=== PATIENT | female | born 1970 ===

== ENCOUNTER 2016-12-18 17:17 | Emergency (ER) | payer OTHER, SELFPAY ==
[2016-12-18 17:44] VITALS: BP 108/74; PULSE 85; RESP 18; TEMP 97.7; O2SAT 97
--- NOTE | 2016-12-18 18:14 | C.PDOC ---
History Of Present Illness 46 yr old female with PMhx of asthma, presents to the ER with complaints of cough for the past 1 month. Patient states she ran out of her asthma medicine. Denies fever, chills, chest pain, SOB, nausea, vomiting, abdominal pain or headache. Time Seen by Provider: 12/18/16 17:37 Chief Complaint (Nursing): Cough, Cold, Congestion History Per: Patient History/Exam Limitations: no limitations Onset/Duration Of Symptoms: Days (1 month) Past Medical History Reviewed: Historical Data, Nursing Documentation, Vital Signs Vital Signs: Last Vital Signs Temp 97.7 F 12/18/16 17:41 Pulse 85 12/18/16 17:41 Resp 18 12/18/16 17:41 BP 108/74 12/18/16 17:41 Pulse Ox 97 12/18/16 18:43 - Medical History PMH: Asthma Family History: States: No Known Family Hx - Social History Hx Tobacco Use: No Hx Alcohol Use: No Hx Substance Use: No - Immunization History Hx Tetanus Toxoid Vaccination: No Hx Influenza Vaccination: No Hx Pneumococcal Vaccination: No Review Of Systems Except As Marked, All Systems Reviewed And Found Negative. Constitutional: Negative for: Fever, Chills Cardiovascular: Negative for: Chest Pain Respiratory: Positive for: Cough. Negative for: Shortness of Breath Gastrointestinal: Negative for: Nausea, Vomiting, Abdominal Pain Neurological: Negative for: Headache Physical Exam - Physical Exam Appears: Well, Non-toxic, No Acute Distress Skin: Warm, Dry, No Rash Head: Atraumatic, Normacephalic Eye(s): bilateral: PERRL, EOMI Ear(s): Bilateral: Normal (no erythema) Nose: Normal Oral Mucosa: Moist Throat: Normal, No Erythema, No Exudate, No Drooling Neck: Normal, Normal ROM, Supple Chest: Symmetrical, No Tenderness Cardiovascular: Rhythm Regular, No Murmur Respiratory: Normal Breath Sounds, No Rales, No Rhonchi, No Stridor, No Wheezing Extremity: Normal ROM, No Tenderness, No Deformity, No Swelling Neurological/Psych: Oriented x3, Normal Speech, Normal Motor Gait: Steady ED Course And Treatment O2 Sat by Pulse Oximetry: 97 Pulse Ox Interpretation: Normal Medical Decision Making Medical Decision Making: PLAN: * Zithromycin PO PROGRESS: On re-examination, patient is resting comfortably in no acute distress. Clinical signs and symptoms are not suggestive pneumonia. Patient given follow up instructions. Instructed to return to ER if symptoms worsen or new symptoms arise. Disposition Counseled Patient/Family Regarding: Diagnosis, Need For Followup, Rx Given - Disposition Disposition: HOME/ ROUTINE Disposition Time: 18:12 Condition: STABLE Additional Instructions: Vaya a gates mdico o la clnica en 2-5 matos sin falta, para mas evaluacin. [place] los medicamentos mike indicado. Volver a la alexsander de emergencia en cualquier momento si los sntomas persisten o empeoran. Prescriptions: Albuterol HFA [Ventolin HFA 90 mcg/actuation (8 g)] 1 puff IH Q4 #1 puff Azithromycin 1 tab PO DAILY #4 tab Montelukast [Singulair] 10 mg PO DAILY #20 tab Instructions: Upper Respiratory Infection (ED) Print Language: SAMI - POA Present On Arrival: None - Clinical Impression Clinical Impression: Upper respiratory infection, Medication refill - PA / ACCOUNTS PAYABLE REPRESENTATIVE / Resident Statement MD/DO has reviewed & agrees with the documentation as recorded. - Scribe Statement The provider has reviewed the documentation as recorded by the Scribe Tequila Max All medical record entries made by the Scribe were at my direction and personally dictated by me. I have reviewed the chart and agree that the record accurately reflects my personal performance of the history, physical exam, medical decision making, and the department course for this patient. I have also personally directed, reviewed, and agree with the discharge instructions and disposition.
== END 2016-12-18 18:46 | disposition home or self-care (01) ==
LOC: C.ER 17:17
DX: Z76.0 Encounter for issue of repeat prescription (principal); J06.9 Acute upper respiratory infection, unspecified

== ENCOUNTER 2018-06-13 11:08 | Emergency (ER) | payer OTHER ==
[2018-06-13 11:10] VITALS: BMI 30.7
[2018-06-13 11:24] VITALS: O2SAT 98
--- NOTE | 2018-06-13 11:48 | C.PDOC ---
History Of Present Illness 48 y/o female presents to the ER for evaluation after she thinks she swallowed a bone on Thanksgiving 1 week ago. Patient states that she ate piece of turkey and there might be a bone stuck. Patient reports that she has a strange sensation in her esophagus, she thinks that " something " might be in the esophagus. She notes that she is able to eat and swallow liquids and foods. Denies having fever, chills, nausea, vomiting, and abdominal pain. Time Seen by Provider: 06/13/18 11:40 Chief Complaint (Nursing): ENT Problem History Per: Patient History/Exam Limitations: no limitations Onset/Duration Of Symptoms: Days Current Symptoms Are (Timing): Still Present Severity: Moderate Past Medical History Reviewed: Historical Data, Nursing Documentation, Vital Signs Vital Signs: Last Vital Signs Temp 97.5 F L 06/13/18 11:18 Pulse 61 06/13/18 11:18 Resp 18 06/13/18 11:18 BP 122/78 06/13/18 11:18 Pulse Ox 98 06/13/18 11:18 - Medical History PMH: Asthma Other Surgeries: Hx of surgeries Family History: States: No Known Family Hx - Social History Hx Tobacco Use: No Hx Alcohol Use: No Hx Substance Use: No - Immunization History Hx Tetanus Toxoid Vaccination: No Hx Influenza Vaccination: No Hx Pneumococcal Vaccination: No Review Of Systems Except As Marked, All Systems Reviewed And Found Negative. Constitutional: Negative for: Fever, Chills ENT: Positive for: Other (abnormal sensation in throat) Gastrointestinal: Negative for: Nausea, Vomiting, Abdominal Pain Physical Exam - Physical Exam Appears: Non-toxic, No Acute Distress Skin: Normal Color, Warm, Dry Head: Atraumatic, Normacephalic Eye(s): bilateral: Normal Inspection Nose: Normal Oral Mucosa: Moist Throat: Normal, No Erythema, No Exudate, No Mass Neck: Supple Chest: Symmetrical Cardiovascular: Rhythm Regular, No Murmur Respiratory: Normal Breath Sounds, No Rales, No Rhonchi, No Wheezing Gastrointestinal/Abdominal: Normal Exam, Soft, No Tenderness, No Guarding, No Rebound Extremity: Bilateral: Atraumatic, Normal ROM Neurological/Psych: Oriented x3, Normal Speech ED Course And Treatment O2 Sat by Pulse Oximetry: 98 (RA) Pulse Ox Interpretation: Normal Medical Decision Making Medical Decision Making: Impression: Foreign Body Sensation in Throat Plan: * [id number]-Soft Tissue Neck xray shows no foreign body. Patient remained well in no distress. she is speaking clear sentences and able to swallow liquids and tolerate. Advise patient to follow up with GI. Disposition Counseled Patient/Family Regarding: Diagnosis, Need For Followup - Disposition Referrals: Marino Maynard MD [Staff Provider] - Disposition: HOME/ ROUTINE Disposition Time: 12:48 Condition: GOOD Additional Instructions: Radiografa normal Eduard un seguimiento con un especialista en GI para peyton evaluacin adicional y peyton posible endoscopia bro medicamentos dos veces al caleb Prescriptions: Ranitidine HCl 150 mg PO BID #30 tablet Instructions: Dysphagia Print Language: BENGALI - POA Present On Arrival: None - Clinical Impression Clinical Impression: Sensation of foreign body in esophagus - PA / [employer] / Resident Statement MD/DO has reviewed & agrees with the documentation as recorded. - Scribe Statement The provider has reviewed the documentation as recorded by the Stuart Kemp Provider Attestation All medical record entries made by the Scribe were at my direction and personally dictated by me. I have reviewed the chart and agree that the record accurately reflects my personal performance of the history, physical exam, medical decision making, and the department course for this patient. I have also personally directed, reviewed, and agree with the discharge instructions and disposition.
[2018-06-13 13:02] VITALS: BP 114/73; PULSE 70; RESP 20; TEMP 98.2
--- NOTE | 2018-06-13 16:24 | RAD ---
Date of service: 06/13/2018 HISTORY: possible poultry bone swallowed COMPARISON: None TECHNIQUE: Two views FINDINGS: No radiopaque foreign body appreciated. No osseous or soft tissue pathology appreciated. Airway appears unremarkable. IMPRESSION: No radiopaque foreign body appreciated.
== END 2018-06-13 13:02 | disposition home or self-care (01) ==
LOC: C.ER 11:08
DX: R19.8 Other specified symptoms and signs involving the digestive system and abdomen (principal)

== ENCOUNTER 2018-11-20 02:44 | Emergency (ER) | payer OTHER ==
[2018-10-22 14:27] VITALS: BMI 30.7
[2018-11-20 06:14] VITALS: BP 112/73; PULSE 63; RESP 16; TEMP 97.6; O2SAT 100
[2018-11-20 09:51] LABS: URINE BILIRUBIN NEGATIVE (NEGATIVE); URINE BLOOD 3+ (NEGATIVE); URINE CLARITY Hazy (Clear); URINE COLOR YELLOW (YELLOW); URINE GLUCOSE (UA) Normal (Normal); URINE PROTEIN NEGATIVE (NEGATIVE)
[2018-11-20 09:52] LABS: HCG,QUALITATIVE URINE NEGATIVE (NEGATIVE); URINE BACTERIA FEW (<OCC); URINE LEUKOCYTE ESTERASE 2+ Leu/uL (Negative); URINE UROBILINOGEN Normal mg/dL (0.2-1.0)
== END 2018-11-20 05:05 | disposition home or self-care (01) ==
LOC: C.ER 02:44
DX: N39.0 Urinary tract infection, site not specified (principal)